=== PATIENT | female | born 1990 | race American Indian/Alaskan Native ===

== ENCOUNTER 2017-02-19 21:12 | Emergency (ER) | payer SELFPAY ==
[2017-02-19 22:05] LABS: Basophils % (Auto) 0.5 % (0.0-1.8); Eosinophils % (Auto) 0.5 % (0.0-4.3); Hematocrit 32.5 % (30.3-42.9); Mean Corpuscular HGB Conc 31 % (30-34); Mean Corpuscular Volume 77 fl (79-97); Platelet Count 434 K/mm3 (140-440); Red Blood Count 4.21 M/mm3 (3.65-5.03); Red Cell Distribution Width 17.5 % (13.2-15.2); White Blood Count 17.8 K/mm3 (4.5-11.0)
[2017-02-19 22:06] LABS: Alanine Aminotransferase 16 units/L (7-56); Albumin 3.9 g/dL (3.9-5); Alkaline Phosphatase 84 units/L (35-129); Anion Gap 12 mmol/L; Blood Urea Nitrogen 9 mg/dL (7-17); Carbon Dioxide 30 mmol/L (22-30); Glucose 113 mg/dL (65-100); Lipase 24 units/L (13-60); Potassium 3.2 mmol/L (3.6-5.0); Sodium 137 mmol/L (137-145); Total Protein 7.9 g/dL (6.3-8.2)
[2017-02-19 22:07] LABS: Mean Corpuscular Hemoglobin 24 pg (28-32)
[2017-02-19 22:44] LABS: Bacteria,Urine 1+ /HPF (Negative); Bilirubin,Urine NEG (Negative); Blood,Urine SM (Negative); Ketones,Urine 20 mg/dL (Negative); Leukocyte Esterase,Urine LG (Negative); Mucus,Urine FEW /HPF; Nitrite,Urine NEG (Negative); Urobilinogen,Urine < 2.0 mg/dL (<2.0)
[2017-02-19] MEDS ORDERED: NACL 0.9% 1000 ML 1,000 ML IV ONE (23:50)
[2017-02-19] MEDS ORDERED: MORPHINE IV ONE (23:50)
[2017-02-19] MEDS ORDERED: ZOFRAN IV ONE (23:51)
--- NOTE | 2017-02-19 23:54 | Emergency Department Report ---
ED Abdominal Pain HPI - General Chief Complaint: Abdominal Pain Stated Complaint: LIGHT HEADED, BACK PAIN, ABD PAIN Time Seen by Provider: 02/19/17 23:48 Source: patient Mode of arrival: Ambulatory Limitations: No Limitations - History of Present Illness Initial Comments: 26 yo female with no PMHX presenting to ED complaining of abdominal pain, onset started one day prior to ED arrival. Pt states pain is located in left flank and radiates toward left abdomen. Pt admits symptoms are accompanied by lightheadness and nausea. Pt denies: fever/chills, chest pain,diarrhea. MD Complaint: abdominal pain, flank pain -: Gradual, days(s) (1) Location: LLQ Radiation: LLQ Severity: moderate Severity scale (0 -10): 4 Quality: cramping Consistency: intermittent Improves With: nothing Worsens With: nothing Associated Symptoms: nausea, dysuria. denies: vomiting, diarrhea, chills, constipation, melena, hematuria - Related Data Previous Rx's Medication Instructions Recorded Last Taken Type Amoxicillin/K Clav Tab [Augmentin 1 tab PO BID #14 tablet 12/24/13 Unknown Rx 875MG] oxyCODONE /ACETAMINOPHEN [Percocet 1 tab PO Q4-6H PRN #20 tablet 12/24/13 Unknown Rx 5/325 mg] predniSONE [Deltasone] 20 mg PO TID #9 tab 12/24/13 Unknown Rx Ciprofloxacin HCl [Ciprofloxacin 500 mg PO Q12HR #20 tab 02/20/17 Unknown Rx TAB] Docusate Sodium [Colace] 100 mg PO BID PRN #40 capsule 02/20/17 Unknown Rx HYDROcodone/APAP 5-325 [Jewett 1 each PO Q6HR PRN #10 tablet 02/20/17 Unknown Rx 5/325] Ibuprofen [Motrin 800 MG tab] 800 mg PO Q8HR PRN #20 tablet 02/20/17 Unknown Rx Allergies Allergy/AdvReac Type Severity Reaction Status Date / Time No Known Allergies Allergy Verified 12/24/13 19:49 ED Review of Systems ROS: Stated complaint: LIGHT HEADED, BACK PAIN, ABD PAIN Other details as noted in HPI Constitutional: denies: chills, fever Eyes: denies: eye pain, eye discharge, vision change ENT: denies: ear pain, throat pain Respiratory: denies: cough, shortness of breath, wheezing Cardiovascular: denies: chest pain, palpitations Endocrine: no symptoms reported Gastrointestinal: abdominal pain, nausea. denies: vomiting, diarrhea, constipation, hematemesis, hematochezia Genitourinary: frequency. denies: urgency, dysuria, hematuria, discharge, abnormal menses, dyspareunia Musculoskeletal: denies: back pain, joint swelling, arthralgia Skin: denies: rash, lesions Neurological: denies: headache, weakness, paresthesias Psychiatric: denies: anxiety, depression Hematological/Lymphatic: denies: easy bleeding, easy bruising ED Past Medical Hx - Past Medical History Additional medical history: Anemia - Surgical History Past Surgical History?: No - Social History Smoking Status: Never Smoker Substance Use Type: None - Medications Home Medications: Home Medications Medication Instructions Recorded Confirmed Last Taken Type Amoxicillin/K Clav Tab [Augmentin 1 tab PO BID #14 tablet 12/24/13 Unknown Rx 875MG] oxyCODONE /ACETAMINOPHEN [Percocet 1 tab PO Q4-6H PRN #20 tablet 12/24/13 Unknown Rx 5/325 mg] predniSONE [Deltasone] 20 mg PO TID #9 tab 12/24/13 Unknown Rx Ciprofloxacin HCl [Ciprofloxacin 500 mg PO Q12HR #20 tab 02/20/17 Unknown Rx TAB] Docusate Sodium [Colace] 100 mg PO BID PRN #40 capsule 02/20/17 Unknown Rx HYDROcodone/APAP 5-325 [Jewett 1 each PO Q6HR PRN #10 tablet 02/20/17 Unknown Rx 5/325] Ibuprofen [Motrin 800 MG tab] 800 mg PO Q8HR PRN #20 tablet 02/20/17 Unknown Rx ED Physical Exam - General Limitations: No Limitations General appearance: alert, in no apparent distress - Head Head exam: Present: atraumatic, normocephalic - Eye Eye exam: Present: normal appearance - ENT ENT exam: Present: mucous membranes moist - Neck Neck exam: Present: normal inspection - Respiratory Respiratory exam: Present: normal lung sounds bilaterally. Absent: respiratory distress - Cardiovascular Cardiovascular Exam: Present: regular rate, normal rhythm. Absent: systolic murmur, diastolic murmur, rubs, gallop - GI/Abdominal GI/Abdominal exam: Present: soft, normal bowel sounds, other (pt has no flank pain on exam ). Absent: distended, tenderness, guarding, rebound - Extremities Exam Extremities exam: Present: normal inspection - Back Exam Back exam: Present: normal inspection - Neurological Exam Neurological exam: Present: alert, oriented X3 - Psychiatric Psychiatric exam: Present: normal affect, normal mood - Skin Skin exam: Present: warm, dry, intact, normal color. Absent: rash ED Course Vital Signs 02/19/17 02/19/17 02/20/17 21:26 23:50 00:28 Temperature 98.7 F 98.3 F Pulse Rate 108 H 89 Respiratory 12 20 18 Rate Blood Pressure 113/75 Blood Pressure 113/75 110/77 [Left] O2 Sat by Pulse 100 100 98 Oximetry - Reevaluation(s) Reevaluation #1: 02/20/17 02:02 Patient admits the pain has improved. ED Medical Decision Making - Lab Data Result diagrams: 02/19/17 21:35 02/19/17 21:35 - Radiology Data Radiology results: report reviewed, image reviewed Final impression: There is no evidence of intestinal urinary tract obstruction. No ileus or enteritis. Significant fecal debris in the colon, constipation suspected. Dr. Homer Palomo - Medical Decision Making 26-year-old female with no past medical history presenting to Emergency Department complaining of left flank pain. i I suspect flank pain secondary to pyelonephritis as she has leuks and increased WBC in her urine. I will start her on Cipro and have her follow up PCP. Patient well-appearing, tolerating by mouth liquids and solids, and agrees to plan. Repeat abdominal exam: soft, nontender, nondistended. Patient agrees she is stable discharge home. She verbalizes understanding of return precautions. Critical Care Time: No Critical care attestation.: If time is entered above; I have spent that time in minutes in the direct care of this critically ill patient, excluding procedure time. ED Disposition Clinical Impression: Pyelonephritis, UTI (urinary tract infection), Constipation Disposition: - TO HOME OR SELFCARE Is pt being admited?: No Does the pt Need Aspirin: No Condition: Stable Instructions: Abdominal Pain (ED), Urinary Tract Infection in Women (ED) Prescriptions: Ciprofloxacin HCl [Ciprofloxacin TAB] 500 mg PO Q12HR #20 tab Docusate Sodium [Colace] 100 mg PO BID PRN #40 capsule PRN Reason: Constipation HYDROcodone/APAP 5-325 [Jewett 5/325] 1 each PO Q6HR PRN #10 tablet PRN Reason: Pain Ibuprofen [Motrin 800 MG tab] 800 mg PO Q8HR PRN #20 tablet PRN Reason: Pain , Severe (7-10) Referrals: PRIMARY CARE, [Primary Care Provider] - 2-3 Days GIL CAVAZOS MD, PHD [Staff Physician] - 2-3 Days Forms: Work/School Release Form(ED) Time of Disposition: 02:07
--- NOTE | 2017-02-20 00:56 | Cat Scan Report ---
FINAL REPORT PROCEDURE: CT ABDOMEN PELVIS WO CON TECHNIQUE: Computerized axial tomography of the abdomen and pelvis was performed without intravenous contrast. This study is performed without intravascular contrast material and its sensitivity for abdominal and pelvic pathology, including neoplasms, inflammation, abscess, free fluid, thrombosis, arterial dissection and infarction, is reduced compared with a contrast enhanced study. HISTORY: left flank pain COMPARISON: No prior studies are available for comparison. FINDINGS: Visualized lower thorax: No significant abnormality. Liver: Normal size and attenuation. Spleen: Normal size and attenuation. Gallbladder and biliary system: Normal. Pancreas: Normal. Adrenals: Normal. Kidneys: Normal. GI tract: No obstruction is seen. The appendix is normal. There is significant fecal debris throughout the colon, constipation is suspected.. Lymph nodes and mesentery: Normal. Vasculature: Normal. Bladder: Normal. Reproductive organs: There is a dominant cyst left ovary this measures up 2 5 centimeters.. Peritoneum: No free fluid. Musculoskeletal structures: No significant abnormality. Other: None. IMPRESSION: There is no evidence of intestinal urinary tract obstruction. No ileus or enteritis. Significant fecal debris in the colon, constipation is suspected..
[2017-02-20] MEDS ORDERED: LEVAQUIN PO ONE (02:01)
[2017-02-20 02:51] VITALS: BP 116/68
== END 2017-02-20 02:53 | disposition home or self-care (01) ==
LOC: ED 21:12
DX: N12 Tubulo-interstitial nephritis, not specified as acute or chronic (principal); K59.00 Constipation, unspecified; N39.0 Urinary tract infection, site not specified; D64.9 Anemia, unspecified
CPT/HCPCS: 36415; 74176; 80053; 81001; 83690; 84703; 85025; 96361; 96374; 96375; 99284; J2270; J2405; J7030

== ENCOUNTER 2019-07-23 15:32 | Emergency (ER) | payer SELFPAY ==
[2019-07-23 15:40] VITALS: BP 123/87
--- NOTE | 2019-07-23 16:54 | Event Note ---
ED Screening Note Date of service: 07/23/19 Time: 16:51 ED Screening Note: This initial assessment/diagnostic orders/clinical plan/treatment(s) is/are subject to change based on patients health status, clinical progression and re- assessment by fellow clinical providers in the ED. Further treatment and workup at subsequent clinical providers discretion. Patient/guardian urged not to elope from the ED as their condition may be serious if not clinically assessed and managed. 28 yo c/o sore throat, headache, bodyaches and dizziness. Denies NV/D LMP 1 week ago. Initial orders include:
== END 2019-07-23 18:32 | disposition left against medical advice (07) ==
LOC: ED 15:32
DX: R05 Cough (principal); Z53.21 Procedure and treatment not carried out due to patient leaving prior to being seen by health care provider